=== PATIENT | female | born 1950 | race Caucasian/White ===

== ENCOUNTER 2020-07-11 11:33 | Emergency (ER) | payer OTHER ==
[2020-07-11 11:51] VITALS: TEMP 98.5; BMI 31.8
[2020-07-11] MEDS ORDERED: BAMLANIVIMAB 700 MG in SODIUM CHLORIDE 250 ML IVPB ONE (12:09)
[2020-07-11 12:29] LABS: BASO % 1.1 % (0-2.0); EOS % 0.2 % (0-4.5); HEMATOCRIT 41.7 % (32.4-45.2); HEMOGLOBIN 14.4 GM/dL (10.7-15.3); LYMPH % 23.4 % (8-40); MCH 32.5 pg (25.7-33.7); MCHC 34.4 g/dl (32.0-36.0); MEAN CELL VOLUME 94.5 fl (80-96); MONO % 7.9 % (3.8-10.2); NEUT % 67.4 % (42.8-82.8); PLATELET COUNT 224 K/MM3 (134-434); RBC 4.42 M/mm3 (3.60-5.2); WHITE BLOOD COUNT 8.2 K/mm3 (4.0-10.0)
[2020-07-11 13:11] LABS: POTASSIUM 3.6 mmol/L (3.5-5.1)
[2020-07-11 13:13] LABS: ALBUMIN 3.8 g/dl (3.4-5.0); CALCIUM 9.1 mg/dL (8.5-10.1)
[2020-07-11 13:17] LABS: CREATININE 0.7 mg/dL (0.55-1.3)
[2020-07-11 13:18] LABS: BILIRUBIN,TOTAL 1.4 mg/dL (0.2-1); TOT PROT 7.5 g/dl (6.4-8.2)
[2020-07-11 14:29] VITALS: BP 140/73; PULSE 73
== END 2020-07-11 17:38 | disposition home or self-care (01) ==
LOC: JER 11:33
DX: U07.1 COVID-19 (principal)
CPT/HCPCS: 36415; 80053; 85025; 99284-25; M0239; Q0239

== ENCOUNTER 2022-07-22 13:04 | Inpatient (IN) | payer OTHER ==
[2022-07-22 15:32] LABS: HEMATOCRIT 41.4 % (32.4-45.2); HEMOGLOBIN 14.1 GM/dL (10.7-15.3); MCH 31.6 pg (25.7-33.7); MCHC 34.1 g/dl (32.0-36.0); MEAN CELL VOLUME 92.7 fl (80-96); MEAN PLT VOLUME 9.2 fl (7.5-11.1); PLATELET COUNT 233 10^3/uL (134-434); RBC 4.47 M/mm3 (3.60-5.2); RDW 12.9 % (11.6-15.6); WHITE BLOOD COUNT 17.6 K/mm3 (4.0-10.0)
[2022-07-22 16:06] LABS: ALBUMIN 3.7 g/dl (3.4-5.0); BLOOD UREA NITROGEN 9.1 mg/dL (7-18)
[2022-07-22 16:09] LABS: CREATININE 0.8 mg/dL (0.55-1.3)
[2022-07-22 16:10] LABS: ANISOCYTOSIS 0; BILIRUBIN,TOTAL 1.1 mg/dL (0.2-1); MACROCYTOSIS 0; TOT PROT 7.6 g/dl (6.4-8.2)
[2022-07-22 17:07] LABS: EPI CELLS 8 /uL (0-25.1); HYALINE CASTS 0 /uL (0-3.1); URINE APPEARANCE CLEAR; URINE BACTERIA 21 /uL (0-1359); URINE BILIRUBIN NEGATIVE (NEGATIVE); URINE COLOR YELLOW; URINE GLUCOSE (UA) NEGATIVE (NEGATIVE); URINE KETONE NEGATIVE (NEGATIVE); URINE LEUK ESTERASE TRACE (NEGATIVE); URINE NITRITE NEGATIVE (NEGATIVE); URINE PROTEIN NEGATIVE (NEGATIVE); URINE RBC 25 /uL (0-23.9); URINE UROBILINOGEN 0.2 mg/dL (0.2-1.0); URINE WBC 34 /uL (0-25.8)
[2022-07-22] MEDS ORDERED: CEFTRIAXONE 1,000 MG in DEXTROSE 5%-WATER - 50 ML IVPB ONE (17:29)
[2022-07-22] MEDS ORDERED: CEFTRIAXONE 1 GM/50 ML BAG ONE (17:59)
[2022-07-22] MEDS ORDERED: ONDANSETRON 4 MG/2 ML VIAL IVPUSH ONE (19:45)
[2022-07-22] MEDS ORDERED: ONDANSETRON 4 MG/2 ML VIAL ONE (19:53)
[2022-07-22 22:18] LABS: ERYTHROCYTE SEDIMENTATION RATE 48 mm/hr (0-30)
[2022-07-22] MEDS ORDERED: amLODIPine BESYLATE 5 MG TABLET (FP) PO ONE (22:53)
[2022-07-22] MEDS ORDERED: amLODIPine BESYLATE 5 MG TABLET (FP) ONE (23:19)
[2022-07-23 01:28] LABS: BILIRUBIN,DIRECT 0.3 mg/dL (0.0-0.2)
[2022-07-23] MEDS ORDERED: amLODIPine BESYLATE 5 MG TABLET (FP) ONE (09:44)
[2022-07-23] MEDS: amLODIPine BESYLATE 5 MG TABLET (FP) PO SCH (09:47)
[2022-07-23 11:22] VITALS: BMI 29.2
[2022-07-23 11:56] LABS: HEMATOCRIT 40.4 % (32.4-45.2); HEMOGLOBIN 13.7 GM/dL (10.7-15.3); MCH 31.4 pg (25.7-33.7); MCHC 33.9 g/dl (32.0-36.0); MEAN CELL VOLUME 92.8 fl (80-96); MEAN PLT VOLUME 9.8 fl (7.5-11.1); PLATELET COUNT 268 10^3/uL (134-434); RBC 4.36 M/mm3 (3.60-5.2); WHITE BLOOD COUNT 9.3 K/mm3 (4.0-10.0)
[2022-07-23 12:23] LABS: BLOOD UREA NITROGEN 10.8 mg/dL (7-18); CALCIUM 9.2 mg/dL (8.5-10.1)
[2022-07-23 12:25] LABS: MAGNESIUM 1.9 mg/dL (1.8-2.4)
[2022-07-23 12:26] LABS: BILIRUBIN,DIRECT 0.2 mg/dL (0.0-0.2)
[2022-07-23 12:28] LABS: CREATININE 0.7 mg/dL (0.55-1.3); PHOSPHOROUS 2.4 mg/dL (2.5-4.9)
[2022-07-23] MEDS: ENOXAPARIN NA (PORCINE) 40 MG/0.4 ML DISP.SYRIN SQ SCH (13:54)
[2022-07-24] MEDS ORDERED: REMDESIVIR 200 MG in SODIUM CHLORIDE 250 ML IVPB ONE (09:30)
[2022-07-24 09:33] LABS: BASO % 0.5 % (0-2.0); EOS % 0.5 % (0-4.5); HEMOGLOBIN 13.9 GM/dL (10.7-15.3); LYMPH % 25.9 % (8-40); MCHC 34.8 g/dl (32.0-36.0); MEAN CELL VOLUME 92.1 fl (80-96); MEAN PLT VOLUME 9.6 fl (7.5-11.1); MONO % 6.9 % (3.8-10.2); NEUT % 66.2 % (42.8-82.8); PLATELET COUNT 291 10^3/uL (134-434); RBC 4.35 M/mm3 (3.60-5.2); RDW 12.6 % (11.6-15.6); WHITE BLOOD COUNT 7.9 K/mm3 (4.0-10.0)
[2022-07-24 09:55] LABS: BLOOD UREA NITROGEN 15.8 mg/dL (7-18); CALCIUM 9.1 mg/dL (8.5-10.1)
[2022-07-24 09:56] LABS: MAGNESIUM 2.1 mg/dL (1.8-2.4)
[2022-07-24 09:58] LABS: CREATININE 0.7 mg/dL (0.55-1.3); PHOSPHOROUS 2.9 mg/dL (2.5-4.9)
[2022-07-24] MEDS ORDERED: POTASSIUM CHLORIDE TABS 20 MEQ TABLET.ER (FP) PO ONE (10:38)
[2022-07-24] MEDS: DEXAMETHASONE SOD PHOSPHATE 10 MG/1 ML VIAL IVPUSH SCH (12:51)
[2022-07-24] MEDS: amLODIPine BESYLATE 5 MG TABLET (FP) PO SCH (12:51)
[2022-07-24] MEDS ORDERED: ACETAMINOPHEN 325 MG TABLET (FP) PO PRN (14:34)
[2022-07-25 09:03] LABS: BASO % 0.2 % (0-2.0); HEMATOCRIT 38.7 % (32.4-45.2); HEMOGLOBIN 13.3 GM/dL (10.7-15.3); LYMPH % 10.1 % (8-40); MCH 31.3 pg (25.7-33.7); MCHC 34.2 g/dl (32.0-36.0); MEAN CELL VOLUME 91.5 fl (80-96); MEAN PLT VOLUME 9.8 fl (7.5-11.1); MONO % 4.4 % (3.8-10.2); NEUT % 85.3 % (42.8-82.8); PLATELET COUNT 299 10^3/uL (134-434); RBC 4.23 M/mm3 (3.60-5.2); RDW 12.8 % (11.6-15.6); WHITE BLOOD COUNT 11.3 K/mm3 (4.0-10.0)
[2022-07-25 09:18] LABS: CHLORIDE 106 mmol/L (98-107); SODIUM 138 mmol/L (136-145)
[2022-07-25 09:21] LABS: CALCIUM 9.2 mg/dL (8.5-10.1)
[2022-07-25 09:22] LABS: ALBUMIN 3.2 g/dl (3.4-5.0); ANION GAP 6 MMOL/L (8-16); BLOOD UREA NITROGEN 24.8 mg/dL (7-18); CO2 26 mmol/L (21-32); GLUCOSE,RANDOM 108 mg/dL (74-106); MAGNESIUM 2.1 mg/dL (1.8-2.4)
[2022-07-25 09:25] LABS: CREATININE 0.7 mg/dL (0.55-1.3); SGOT/AST 11 U/L (15-37); SGPT/ALT 16 U/L (13-61)
[2022-07-25 09:26] LABS: BILIRUBIN,TOTAL 0.6 mg/dL (0.2-1); TOT PROT 6.9 g/dl (6.4-8.2)
[2022-07-25 09:28] LABS: ALK PHOS 72 U/L (45-117)
[2022-07-25] MEDS: ENOXAPARIN NA (PORCINE) 40 MG/0.4 ML DISP.SYRIN SQ SCH (09:55)
[2022-07-25] MEDS: amLODIPine BESYLATE 5 MG TABLET (FP) PO SCH (09:55)
[2022-07-25] MEDS: DEXAMETHASONE SOD PHOSPHATE 10 MG/1 ML VIAL IVPUSH SCH (09:55)
[2022-07-25] MEDS: REMDESIVIR 100 MG in SODIUM CHLORIDE 250 ML IVPB SCH (13:13)
[2022-07-25] MEDS: DOCUSATE SODIUM 100 MG CAPSULE (FP) PO SCH (21:42)
[2022-07-26] MEDS: DOCUSATE SODIUM 100 MG CAPSULE (FP) PO SCH ×4 (06:22→22:08)
[2022-07-26 08:40] LABS: BASO % 0.1 % (0-2.0); HEMATOCRIT 38.1 % (32.4-45.2); HEMOGLOBIN 12.8 GM/dL (10.7-15.3); MCH 30.9 pg (25.7-33.7); MCHC 33.6 g/dl (32.0-36.0); MEAN PLT VOLUME 9.9 fl (7.5-11.1); MONO % 6.4 % (3.8-10.2); NEUT % 86.5 % (42.8-82.8); PLATELET COUNT 301 10^3/uL (134-434); RBC 4.14 M/mm3 (3.60-5.2); RDW 12.7 % (11.6-15.6); WHITE BLOOD COUNT 16.9 K/mm3 (4.0-10.0)
[2022-07-26 08:53] LABS: CHLORIDE 111 mmol/L (98-107); SODIUM 142 mmol/L (136-145)
[2022-07-26 09:10] LABS: ANION GAP 7 MMOL/L (8-16); CALCIUM 9.1 mg/dL (8.5-10.1); CO2 25 mmol/L (21-32); GLUCOSE,RANDOM 118 mg/dL (74-106); MAGNESIUM 2.1 mg/dL (1.8-2.4)
[2022-07-26 09:12] LABS: CREATININE 0.7 mg/dL (0.55-1.3); SGPT/ALT 23 U/L (13-61)
[2022-07-26 09:13] LABS: BILIRUBIN,TOTAL 0.2 mg/dL (0.2-1); SGOT/AST 13 U/L (15-37); TOT PROT 6.6 g/dl (6.4-8.2)
[2022-07-26 09:14] LABS: ALK PHOS 74 U/L (45-117)
[2022-07-26] MEDS: PANTOPRAZOLE 40 MG TABLET PO SCH (11:15)
[2022-07-26] MEDS: ENOXAPARIN NA (PORCINE) 40 MG/0.4 ML DISP.SYRIN SQ SCH (11:15)
[2022-07-26] MEDS: amLODIPine BESYLATE 5 MG TABLET (FP) PO SCH (11:16)
[2022-07-26] MEDS: DEXAMETHASONE SOD PHOSPHATE 10 MG/1 ML VIAL IVPUSH SCH (11:16)
[2022-07-26] MEDS: REMDESIVIR 100 MG in SODIUM CHLORIDE 250 ML IVPB SCH (13:39)
[2022-07-27] MEDS: DOCUSATE SODIUM 100 MG CAPSULE (FP) PO SCH ×3 (06:11→23:30)
[2022-07-27 08:58] LABS: BASO % 0.2 % (0-2.0); HEMATOCRIT 39.8 % (32.4-45.2); HEMOGLOBIN 13.7 GM/dL (10.7-15.3); LYMPH % 19.3 % (8-40); MCH 31.9 pg (25.7-33.7); MCHC 34.4 g/dl (32.0-36.0); MEAN CELL VOLUME 92.6 fl (80-96); MEAN PLT VOLUME 10.2 fl (7.5-11.1); MONO % 10.2 % (3.8-10.2); NEUT % 70.3 % (42.8-82.8); PLATELET COUNT 295 10^3/uL (134-434); RDW 12.7 % (11.6-15.6); WHITE BLOOD COUNT 12.8 K/mm3 (4.0-10.0)
[2022-07-27 09:26] LABS: CHLORIDE 110 mmol/L (98-107); SODIUM 143 mmol/L (136-145)
[2022-07-27 10:03] LABS: TOT PROT 6.8 g/dl (6.4-8.2)
[2022-07-27 10:04] LABS: ALK PHOS 76 U/L (45-117)
[2022-07-27 10:05] LABS: ANION GAP 5 MMOL/L (8-16); CO2 27 mmol/L (21-32); GLUCOSE,RANDOM 82 mg/dL (74-106)
[2022-07-27 10:06] LABS: CALCIUM 9.3 mg/dL (8.5-10.1)
[2022-07-27 10:07] LABS: ALBUMIN 3.2 g/dl (3.4-5.0); BLOOD UREA NITROGEN 35.7 mg/dL (7-18); MAGNESIUM 2.2 mg/dL (1.8-2.4)
[2022-07-27 10:09] LABS: CREATININE 0.8 mg/dL (0.55-1.3); SGPT/ALT 36 U/L (13-61)
[2022-07-27 10:10] LABS: SGOT/AST 18 U/L (15-37)
[2022-07-27 10:11] LABS: BILIRUBIN,TOTAL 0.3 mg/dL (0.2-1)
[2022-07-27] MEDS: DEXAMETHASONE SOD PHOSPHATE 10 MG/1 ML VIAL IVPUSH SCH (10:20)
[2022-07-27] MEDS: amLODIPine BESYLATE 5 MG TABLET (FP) PO SCH (10:20)
[2022-07-27] MEDS: PANTOPRAZOLE 40 MG TABLET PO SCH (10:20)
[2022-07-27] MEDS: ENOXAPARIN NA (PORCINE) 40 MG/0.4 ML DISP.SYRIN SQ SCH (10:21)
[2022-07-27] MEDS: REMDESIVIR 100 MG in SODIUM CHLORIDE 250 ML IVPB SCH (12:13)
[2022-07-28] MEDS: DOCUSATE SODIUM 100 MG CAPSULE (FP) PO SCH ×3 (06:31→22:28)
[2022-07-28 08:47] LABS: BASO % 0.2 % (0-2.0); EOS % 0.1 % (0-4.5); HEMATOCRIT 41.4 % (32.4-45.2); LYMPH % 20.1 % (8-40); MCH 31.1 pg (25.7-33.7); MCHC 33.7 g/dl (32.0-36.0); MEAN CELL VOLUME 92.3 fl (80-96); MEAN PLT VOLUME 9.8 fl (7.5-11.1); MONO % 10.1 % (3.8-10.2); NEUT % 69.5 % (42.8-82.8); PLATELET COUNT 308 10^3/uL (134-434); RBC 4.49 M/mm3 (3.60-5.2); WHITE BLOOD COUNT 17.2 K/mm3 (4.0-10.0)
[2022-07-28 09:08] LABS: CHLORIDE 108 mmol/L (98-107); SODIUM 139 mmol/L (136-145)
[2022-07-28] MEDS: PANTOPRAZOLE 40 MG TABLET PO SCH (09:11)
[2022-07-28] MEDS: amLODIPine BESYLATE 5 MG TABLET (FP) PO SCH (09:11)
[2022-07-28] MEDS: DEXAMETHASONE SOD PHOSPHATE 10 MG/1 ML VIAL IVPUSH SCH (09:11)
[2022-07-28] MEDS: ENOXAPARIN NA (PORCINE) 40 MG/0.4 ML DISP.SYRIN SQ SCH (09:11)
[2022-07-28 09:14] LABS: GLUCOSE,RANDOM 83 mg/dL (74-106)
[2022-07-28 09:15] LABS: SGPT/ALT 34 U/L (13-61)
[2022-07-28 09:16] LABS: BLOOD UREA NITROGEN 32.2 mg/dL (7-18)
[2022-07-28 09:17] LABS: TOT PROT 6.8 g/dl (6.4-8.2)
[2022-07-28 09:18] LABS: ALBUMIN 3.3 g/dl (3.4-5.0); ALK PHOS 78 U/L (45-117); ANION GAP 6 MMOL/L (8-16); BILIRUBIN,TOTAL 0.4 mg/dL (0.2-1); CO2 26 mmol/L (21-32); CREATININE 0.7 mg/dL (0.55-1.3)
[2022-07-28 09:19] LABS: SGOT/AST 15 U/L (15-37)
[2022-07-28 09:22] LABS: MAGNESIUM 2.3 mg/dL (1.8-2.4)
[2022-07-28] MEDS ORDERED: SODIUM CHLORIDE NASAL SPRAY 44 ML BOTTLE NS PRN (12:00)
[2022-07-28] MEDS: REMDESIVIR 100 MG in SODIUM CHLORIDE 250 ML IVPB SCH (14:15)
[2022-07-29] MEDS: DOCUSATE SODIUM 100 MG CAPSULE (FP) PO SCH ×3 (06:30→22:33)
[2022-07-29] MEDS: PANTOPRAZOLE 40 MG TABLET PO SCH (10:58)
[2022-07-29] MEDS: amLODIPine BESYLATE 5 MG TABLET (FP) PO SCH (10:58)
[2022-07-29] MEDS: ENOXAPARIN NA (PORCINE) 40 MG/0.4 ML DISP.SYRIN SQ SCH (10:58)
[2022-07-29 15:21] LABS: HEMATOCRIT 43.2 % (32.4-45.2); HEMOGLOBIN 14.2 GM/dL (10.7-15.3); MCH 30.4 pg (25.7-33.7); MCHC 32.9 g/dl (32.0-36.0); MEAN CELL VOLUME 92.4 fl (80-96); MEAN PLT VOLUME 10.3 fl (7.5-11.1); PLATELET COUNT 308 10^3/uL (134-434); RBC 4.67 M/mm3 (3.60-5.2); RDW 13.2 % (11.6-15.6); WHITE BLOOD COUNT 22.9 K/mm3 (4.0-10.0)
[2022-07-29 15:45] LABS: CHLORIDE 106 mmol/L (98-107); SODIUM 138 mmol/L (136-145)
[2022-07-29 15:47] LABS: CALCIUM 8.9 mg/dL (8.5-10.1)
[2022-07-29 15:48] LABS: ALBUMIN 3.2 g/dl (3.4-5.0); ANION GAP 9 MMOL/L (8-16); BLOOD UREA NITROGEN 40.1 mg/dL (7-18); CO2 22 mmol/L (21-32); GLUCOSE,RANDOM 109 mg/dL (74-106); MAGNESIUM 2.4 mg/dL (1.8-2.4)
[2022-07-29 15:51] LABS: SGOT/AST 11 U/L (15-37); SGPT/ALT 30 U/L (13-61)
[2022-07-29 15:52] LABS: BILIRUBIN,TOTAL 0.3 mg/dL (0.2-1); TOT PROT 6.6 g/dl (6.4-8.2)
[2022-07-29 15:54] LABS: ALK PHOS 78 U/L (45-117)
[2022-07-29 16:22] LABS: ANISOCYTOSIS 1+; MACROCYTOSIS 0
[2022-07-30] MEDS: DOCUSATE SODIUM 100 MG CAPSULE (FP) PO SCH ×3 (05:17→22:42)
[2022-07-30] MEDS: PANTOPRAZOLE 40 MG TABLET PO SCH (10:43)
[2022-07-30] MEDS: amLODIPine BESYLATE 5 MG TABLET (FP) PO SCH (10:43)
[2022-07-30] MEDS: ENOXAPARIN NA (PORCINE) 40 MG/0.4 ML DISP.SYRIN SQ SCH (10:44)
[2022-07-31] MEDS: DOCUSATE SODIUM 100 MG CAPSULE (FP) PO SCH ×2 (05:39→13:13)
[2022-07-31] MEDS: amLODIPine BESYLATE 5 MG TABLET (FP) PO SCH (09:24)
[2022-07-31] MEDS: PANTOPRAZOLE 40 MG TABLET PO SCH (09:24)
[2022-07-31 14:04] VITALS: BP 128/71; PULSE 87; RESP 20; TEMP 98.2
== END 2022-07-31 14:04 | DRG 179 ==
LOC: JER 13:04 → JERBED 20:15 → INTOOBSV 20:15 → J8W 07-23 10:02 → OBSVTOIN 07-24 15:27 → J8W 07-26 18:56
PROVIDERS: ADMIT Internal Medicine; ATTEND Nurse Practitioner Family
PROC: XW033E5 Introduction of Remdesivir Anti-infective into Peripheral Vein, Percutaneous Approach, New Technology Group 5 (ICD-10-PCS; principal; 2022-07-24)
PROC: 3E0333Z Introduction of Anti-inflammatory into Peripheral Vein, Percutaneous Approach (ICD-10-PCS; 2022-07-24)
DX: U07.1 COVID-19 (principal); I16.0 Hypertensive urgency; R09.02 Hypoxemia; R25.1 Tremor, unspecified; R73.9 Hyperglycemia, unspecified; E66.9 Obesity, unspecified; Z68.29 Body mass index [BMI] 29.0-29.9, adult
CPT/HCPCS: 0241U-QW; 36415; 70450-TC; 71045-TC-FY; 73030-TC-RT-FY; 74018-TC-FY; 80048; 80053; 81003; 82248; 83735; 84100; 85025; 85027; 85379; 85651; 86140; 87086; 93005; 93010; 94761; 97116-GP; 97161-GP; 99285-25; C9399; C9803-CS; G0378; J1100; U0003; U0005

== ENCOUNTER 2022-09-15 19:46 | Observation (INO) | payer OTHER ==
[2022-09-15 19:52] VITALS: BMI 31.1
[2022-09-16 00:26] LABS: BASO % 1.1 % (0-2.0); EOS % 1.2 % (0-4.5); HEMATOCRIT 40.2 % (32.4-45.2); HEMOGLOBIN 13.5 GM/dL (10.7-15.3); LYMPH % 23.8 % (8-40); MCH 31.4 pg (25.7-33.7); MCHC 33.6 g/dl (32.0-36.0); MEAN CELL VOLUME 93.5 fl (80-96); MEAN PLT VOLUME 10.3 fl (7.5-11.1); MONO % 6.4 % (3.8-10.2); NEUT % 67.5 % (42.8-82.8); PLATELET COUNT 268 10^3/uL (134-434); RDW 14.2 % (11.6-15.6); WHITE BLOOD COUNT 12.3 K/mm3 (4.0-10.0)
[2022-09-16 00:46] LABS: POTASSIUM 5.4 mmol/L (3.5-5.1)
[2022-09-16 00:47] LABS: CALCIUM 9.3 mg/dL (8.5-10.1)
[2022-09-16 00:48] LABS: ALBUMIN 3.8 g/dl (3.4-5.0); BLOOD UREA NITROGEN 26.6 mg/dL (7-18); MAGNESIUM 2.4 mg/dL (1.8-2.4)
[2022-09-16 00:50] LABS: CREATININE 0.8 mg/dL (0.55-1.3)
[2022-09-16 00:52] LABS: BILIRUBIN,TOTAL 0.5 mg/dL (0.2-1); TOT PROT 7.6 g/dl (6.4-8.2)
[2022-09-16] MEDS ORDERED: DEXTROSE 5%-0.45% SALINE 1,000 ML IV SCH (01:15)
[2022-09-16 03:26] VITALS: RESP 18
[2022-09-16] MEDS ORDERED: amLODIPine BESYLATE 5 MG TABLET (FP) PO SCH (10:00)
[2022-09-16 11:10] LABS: POTASSIUM 3.9 mmol/L (3.5-5.1)
[2022-09-16 11:13] LABS: BLOOD UREA NITROGEN 18.7 mg/dL (7-18)
[2022-09-16 11:14] LABS: ALBUMIN 3.6 g/dl (3.4-5.0); CALCIUM 9.1 mg/dL (8.5-10.1)
[2022-09-16 11:17] LABS: CREATININE 0.6 mg/dL (0.55-1.3)
[2022-09-16 11:19] LABS: BILIRUBIN,TOTAL 1.5 mg/dL (0.2-1); TOT PROT 6.7 g/dl (6.4-8.2)
[2022-09-16 11:20] VITALS: BP 122/66; PULSE 66; TEMP 97.9
== END 2022-09-16 17:44 | disposition home or self-care (01) ==
LOC: JER 19:46 → JERBED 21:47 → J6S 09-16 02:55
PROVIDERS: ADMIT Internal Medicine; ATTEND Family Medicine
PROC: 3E033GC Introduction of Other Therapeutic Substance into Peripheral Vein, Percutaneous Approach (ICD-10-PCS; principal; 2022-09-15)
DX: R94.5 Abnormal results of liver function studies (principal); I10 Essential (primary) hypertension; Z88.0 Allergy status to penicillin; R25.1 Tremor, unspecified
CPT/HCPCS: 0241U-QW; 36415; 71045-TC-FY; 76705-TC; 80053; 80307; 83690; 83735; 85025; 93005; 93010; 96365; 99285-25; G0378

== ENCOUNTER 2024-02-14 10:01 | Emergency (ER) | payer OTHER, MEDICARE ==
[2024-02-14 10:26] VITALS: BP 147/50; PULSE 65; RESP 20; TEMP 98.3; BMI 33.6
== END 2024-02-14 11:05 | disposition home or self-care (01) ==
LOC: JER 10:01
DX: R04.0 Epistaxis (principal)
CPT/HCPCS: 93005; 93010; 99283-25

== ENCOUNTER 2024-07-22 02:04 | Inpatient (IN) | payer OTHER, MEDICARE ==
[2024-07-22] MEDS ORDERED: ACETAMINOPHEN INJECTION 100 ML ONE (02:38)
[2024-07-22 03:35] LABS: ABSOLUTE IMMATURE GRANULOCYTES 0.03 x10^3/uL (0.0-0.031); BASOPHILS # 0.06 x10^3/uL (0.01-0.08); EOSINOPHIL % 1.1 % (0.7-5.8); EOSINOPHILS # 0.12 x10^3/uL (0.04-0.36); HEMATOCRIT 44.7 % (34.1-44.9); HEMOGLOBIN 14.2 g/dL (11.2-15.7); MCHC 31.8 g/dl (32.2-35.5); MEAN PLT VOLUME 11.1 fl (9.4-12.3); MONOCYTE # 0.77 x10^3/uL (0.24-0.86); MONOCYTE % 6.9 % (4.7-12.5); PLATELET COUNT 286 x10^3/uL (182-369); RDW 12.6 % (12.4-16.6)
[2024-07-22] MEDS: ACETAMINOPHEN 1000 MG/100 ML BAG IVPB ONE (03:37)
[2024-07-22 03:44] LABS: INR 1.05 (0.83-1.09); PROTHROMBIN TIME (PATIENT) 11.5 SEC (9.7-13.0)
[2024-07-22 03:46] LABS: ACTIVATED PTT 31.3 SECONDS (25.2-36.5)
[2024-07-22 03:59] LABS: POTASSIUM 4.6 mmol/L (3.5-5.1)
[2024-07-22 04:00] LABS: CALCIUM 9.5 mg/dL (8.5-10.1)
[2024-07-22 04:01] LABS: ALBUMIN 3.8 g/dl (3.4-5.0); BLOOD UREA NITROGEN 9.7 mg/dL (7-18); MAGNESIUM 2.1 mg/dL (1.8-2.4)
[2024-07-22 04:04] LABS: CREATININE 0.9 mg/dL (0.55-1.3)
[2024-07-22 04:06] LABS: BILIRUBIN,TOTAL 1.2 mg/dL (0.2-1); TOT PROT 7.3 g/dl (6.4-8.2)
[2024-07-22] MEDS ORDERED: KETOROLAC TROMETHAMINE 15 MG/ML VIAL ONE (05:19)
[2024-07-22] MEDS: KETOROLAC TROMETHAMINE 15 MG/ML VIAL IVPUSH ONE (05:23)
[2024-07-22] MEDS ORDERED: CARBIDOPA/LEVODOPA 25/100 TABLET (FP) ONE (06:15)
[2024-07-22] MEDS ORDERED: LOSARTAN POTASSIUM 50 MG TABLET ONE (06:15)
[2024-07-22] MEDS: LOSARTAN POTASSIUM 50 MG TABLET PO ONE (06:19)
[2024-07-22 10:25] VITALS: BMI 32.5
[2024-07-22] MEDS: DOCUSATE SODIUM 100 MG CAPSULE (FP) PO SCH (14:01)
[2024-07-22] MEDS: HEPARIN NA (PORCINE) 5,000 UNITS/ML 1ML VIAL SQ SCH (14:03)
[2024-07-22] MEDS: ACETAMINOPHEN 325 MG TABLET (FP) PO PRN (22:42)
[2024-07-23] MEDS: KETOROLAC TROMETHAMINE 15 MG/ML VIAL IVPUSH ONE (01:58)
[2024-07-23 08:30] LABS: POTASSIUM 4.1 mmol/L (3.5-5.1)
[2024-07-23 08:32] LABS: ALBUMIN 3.3 g/dl (3.4-5.0); BLOOD UREA NITROGEN 14.6 mg/dL (7-18); CALCIUM 8.7 mg/dL (8.5-10.1)
[2024-07-23 08:35] LABS: CREATININE 0.8 mg/dL (0.55-1.3)
[2024-07-23 08:37] LABS: BILIRUBIN,TOTAL 1.2 mg/dL (0.2-1); TOT PROT 6.2 g/dl (6.4-8.2)
[2024-07-23 08:41] LABS: ABSOLUTE IMMATURE GRANULOCYTES 0.02 x10^3/uL (0.0-0.031); BASOPHILS # 0.03 x10^3/uL (0.01-0.08); EOSINOPHIL % 0.1 % (0.7-5.8); EOSINOPHILS # 0.01 x10^3/uL (0.04-0.36); HEMATOCRIT 40.7 % (34.1-44.9); HEMOGLOBIN 13.3 g/dL (11.2-15.7); MCHC 32.7 g/dl (32.2-35.5); MEAN CELL VOLUME 97.8 fl (79.4-94.8); MEAN PLT VOLUME 11.4 fl (9.4-12.3); MONOCYTE # 0.63 x10^3/uL (0.24-0.86); MONOCYTE % 5.9 % (4.7-12.5); PLATELET COUNT 256 x10^3/uL (182-369); RDW 12.3 % (12.4-16.6)
[2024-07-23] MEDS: amLODIPine BESYLATE 5 MG TABLET (FP) PO SCH (09:28)
[2024-07-23] MEDS: CARBIDOPA/LEVODOPA 25/100 TABLET (FP) PO SCH (13:58)
[2024-07-23] MEDS: BACLOFEN 10 MG TABLET (FP) PO SCH (21:36)
[2024-07-24 08:01] LABS: HEMATOCRIT 39.9 % (34.1-44.9); HEMOGLOBIN 12.7 g/dL (11.2-15.7); MCHC 31.8 g/dl (32.2-35.5); MEAN PLT VOLUME 11.3 fl (9.4-12.3); PLATELET COUNT 253 x10^3/uL (182-369); RDW 12.8 % (12.4-16.6)
[2024-07-24 08:37] LABS: CHLORIDE 107 mmol/L (98-107); POTASSIUM 4.1 mmol/L (3.5-5.1); SODIUM 140 mmol/L (136-145)
[2024-07-24 08:39] LABS: ANION GAP 9 mmol/L (4-13); BLOOD UREA NITROGEN 15.8 mg/dL (7-18); CALCIUM 8.9 mg/dL (8.5-10.1); CO2 24 mmol/L (21-32); GLUCOSE,RANDOM 96 mg/dL (74-106)
[2024-07-24 08:42] LABS: CREATININE 0.7 mg/dL (0.55-1.3); SGOT/AST 28 U/L (15-37)
[2024-07-24 08:43] LABS: SGPT/ALT < 6 U/L (13-61)
[2024-07-24 08:44] LABS: BILIRUBIN,TOTAL 1.1 mg/dL (0.2-1)
[2024-07-24 08:45] LABS: ALK PHOS 76 U/L (45-117)
[2024-07-24 09:28] LABS: ERYTHROCYTE SEDIMENTATION RATE 29 mm/hr (0-30)
[2024-07-24] MEDS: DEXAMETHASONE SOD PHOSPHATE 10 MG/1 ML VIAL IVPUSH SCH (10:32)
[2024-07-25 18:03] VITALS: BP 113/56; PULSE 70; RESP 18; TEMP 98.4
== END 2024-07-25 19:53 | DRG 552 ==
LOC: JER 02:04 → JERBED 08:49 → J7W 09:20 → OBSVTOIN 10:35
PROVIDERS: ADMIT Family Medicine; ATTEND Family Medicine
DX: M48.00 Spinal stenosis, site unspecified (principal); G20.A1 Parkinson's disease without dyskinesia, without mention of fluctuations; I10 Essential (primary) hypertension; N31.9 Neuromuscular dysfunction of bladder, unspecified; M17.11 Unilateral primary osteoarthritis, right knee; M16.11 Unilateral primary osteoarthritis, right hip
CPT/HCPCS: 36415; 70551-TC; 72131-TC; 73030-TC-RT-FY; 73502-TC-RT-FY; 73562-TC-RT-FY; 80053; 82962; 83735; 84443; 84484; 85025; 85027; 85610; 85651; 85730; 86140; 93005; 93010; 93971-TC; 97116-GP; 97161-GP; 99285-25; G0378; J0131; J0475; J1100; J1644